=== PATIENT | female | born 1990 | race Hispanic/Latino ===

== ENCOUNTER 2024-02-27 22:21 | Emergency (ER) | payer SELFPAY ==
[2024-02-27] MEDS ORDERED: cefTRIAXone (ROCEPHIN) 500 MG VIAL ONE (23:57)
[2024-02-27] MEDS ORDERED: Sterile Water 10 ML ONE (23:58)
[2024-02-28] MEDS ORDERED: Azithromycin 250 MG TAB ONE (00:08)
[2024-03-01 00:13] LABS: Chlam.trachomatis by PCR,Urine Not Detected (NotDetected); GC N.gonorrhoeae PCR,UrineVOID Not Detected (NotDetected)
== END 2024-02-28 00:20 | disposition home or self-care (01) ==
LOC: CSHERS 22:21
DX: T19.2XXA Foreign body in vulva and vagina, initial encounter (principal); X58.XXXA Exposure to other specified factors, initial encounter
CPT/HCPCS: 87491; 87591; 96372; 99283; J0696

== ENCOUNTER 2025-01-14 01:38 | Emergency (ER) | payer SELFPAY ==
[2025-01-14] MEDS ORDERED: Ibuprofen 200 MG TAB ONE (02:49)
== END 2025-01-14 03:00 ==
LOC: CSHERS 01:38
DX: L03.319 Cellulitis of trunk, unspecified (principal)
CPT/HCPCS: 99283